=== PATIENT | female | born 1955 | race Caucasian/White ===

== ENCOUNTER 2022-02-09 22:25 | Emergency (ER) | payer SELFPAY ==
[~2022-02-09] VITALS: Ht 152.4 cm; Wt 76.2 kg
[~2022-02-09 22:25] MED LIST: HYDR25TA4 PO; LIP40 PO
--- NOTE | 2022-02-09 22:39 | NUR ---
Pt to ER from home w/ c/o left flank pain x 3 days 10 pain w/ associated diarrhea. Pt denies fever, dysuria, and abdominal pain. Pt ambulats with strong steady gait. Normal skin color for ethncity. Pt denies n/v. PT denies blood in stool.
[2022-02-09 22:42] VITALS: BP_SYST 147
--- NOTE | 2022-02-09 23:00 | NUR ---
Pt given urine cup at this time
--- NOTE | 2022-02-09 23:07 | NUR ---
Patient to ER bed 07 to gown for evaluation. Side rails up. Report given to DOMENICO VERDIN
--- NOTE | 2022-02-09 23:20 | NUR ---
Pt to CT via wheelchair accompanied by staff.
--- NOTE | 2022-02-09 23:35 | NUR ---
Urine sample collected and sent to lab.
[2022-02-09 23:44] LABS: BILIRUBIN,URINE NEGATIVE (NEGATIVE); CLARITY/URINE CLEAR (CLEAR); COLOR,URINE YELLOW (YELLOW); GLUCOSE,URINE NEGATIVE (NEGATIVE); KETONES,URINE NEGATIVE (NEGATIVE); LEUKOCYTE ESTERASE ,URINE NEGATIVE (NEGATIVE); NITRITE, URINE NEGATIVE (NEGATIVE); PH,URINE 5.5 (5.0-8.0); PROTEIN URINE NEGATIVE (NEGATIVE); UROBILINOGEN,URINE 0.2 (0.2-1.0)
[2022-02-09 23:48] LABS: BLOOD, URINE TRACE (NEGATIVE)
[2022-02-09 23:51] LABS: BACTERIA,URINE FEW /HPF (None Seen); RBC,URINE 0-3 /HPF (0-3); WBC,URINE 0-3 /HPF (0-3)
[2022-02-10 00:14] LABS: CALCIUM 8.9 mg/dL (8.4-11.0); CREATININE 0.77 mg/dL (0.55-1.30); POTASSIUM 3.7 mmol/L (3.5-5.1)
[2022-02-10 00:19] LABS: ALBUMIN 3.8 g/dL (3.4-4.8); TOTAL BILIRUBIN 0.6 mg/dL (0.0-1.0)
[2022-02-10 00:20] LABS: RED BLOOD CELL COUNT(AUTO) 4.47 MIL/uL (4.2-6.2)
[2022-02-10 00:25] LABS: BASOPHILS % (AUTO) 0.4 % (0.0-2.0); EOSINOPHILS # (AUTO) 0.2 K/uL (0.0-0.4); EOSINOPHILS % (AUTO) 3.2 % (0.0-4.0); HEMATOCRIT 38.2 % (36-48); HEMOGLOBIN 13.4 g/dL (12.0-16.0); LYMPHOCYTES # (AUTO) 1.9 K/uL (1.0-5.5); LYMPHOCYTES % (AUTO) 30.6 % (20.5-51.5); MEAN CORPUSCULAR HEMOGLOBIN 30 pg (27-31); MEAN CORPUSCULAR HGB CONC 35 % (32-36); MEAN CORPUSCULAR VOLUME 86 fL (79.0-98.0); MONOCYTES # (AUTO) 0.4 K/uL (0.0-1.0); MONOCYTES % (AUTO) 6.9 % (1.7-9.3); NEUTROPHILS # (AUTO) 3.7 K/uL (1.8-7.7); NEUTROPHILS % (AUTO) 58.9 % (40.0-70.0); PLATELET COUNT (AUTO) 215 K/uL (130-430); RED CELL DISTRIBUTION WIDTH 13.3 % (9.0-15.0); WHITE BLOOD COUNT (AUTO) 6.2 K/uL (4.8-10.8)
[2022-02-10] MEDS ORDERED: ACETAMINOPHEN 500 MG TABLET PO ONE (00:30)
[2022-02-10] MEDS ORDERED: HYDR-3917 PO (02:00)
--- NOTE | 2022-02-10 02:07 | NUR ---
Patient given written and verbal discharge instructions and verbalizes understanding. ER MD discussed with patient the results and treatment provided. Patient in stable condition. ID arm band removed. Rx of given. Patient educated on pain management and to follow up with PMD. Pain Scale . Opportunity for questions provided and answered. Medication side effect fact sheet provided.
[2022-02-10 02:10] VITALS: BP_SYST 115
== END 2022-02-10 02:10 | disposition home or self-care (01) ==
LOC: SED 22:25
DX: R10.9 Unspecified abdominal pain (principal); I10 Essential (primary) hypertension; Z79.899 Other long term (current) drug therapy
CPT/HCPCS: 36415; 76376; 80053; 81000; 83690; 85025; 99284

== ENCOUNTER 2023-05-04 10:49 | Emergency (ER) | payer SELFPAY ==
[~2023-05-04] VITALS: Ht 152.4 cm; Wt 76.2 kg
[~2023-05-04 10:49] MED LIST changes: +HYDR-3917 PO
[2023-05-04 11:38] VITALS: BP_SYST 130; PULSE 69; RESP 16; TEMP 98.6; O2SAT 98
[2023-05-04] MEDS ORDERED: MED4 PO (11:49)
[2023-05-04] MEDS ORDERED: DIPH25CA83 PO (11:49)
[2023-05-04 11:54] VITALS: BP_SYST 125; PULSE 77; RESP 18; TEMP 98.2; O2SAT 95
== END 2023-05-04 11:53 | disposition home or self-care (01) ==
LOC: SED 10:49
DX: T63.481A Toxic effect of venom of other arthropod, accidental (unintentional), initial encounter (principal); R21 Rash and other nonspecific skin eruption; I10 Essential (primary) hypertension; Z88.6 Allergy status to analgesic agent; Z88.8 Allergy status to other drugs, medicaments and biological substances; Y92.89 Other specified places as the place of occurrence of the external cause
CPT/HCPCS: 99283

== ENCOUNTER 2023-06-01 23:57 | Emergency (ER) | payer MEDICAID ==
[~2023-06-01] VITALS: Ht 152.4 cm; Wt 77.1 kg
[~2023-06-01 23:57] MED LIST changes: +DIPH25CA83 PO; +MED4 PO
[2023-06-02 00:13] VITALS: BP_SYST 163; PULSE 75; RESP 16; TEMP 97.6; O2SAT 96
[2023-06-02] MEDS ORDERED: NACL 0.9% 1,000 ML IV ONE (00:30)
[2023-06-02] MEDS ORDERED: ONDANSETRON HCL 4 MG/2 ML VIAL IVP ONE (00:30)
[2023-06-02 00:48] LABS: BASOPHILS % (AUTO) 0.2 % (0.0-2.0); EOSINOPHILS # (AUTO) 0.2 K/uL (0.0-0.4); EOSINOPHILS % (AUTO) 1.7 % (0.0-4.0); HEMOGLOBIN 13.4 g/dL (12.0-16.0); LYMPHOCYTES # (AUTO) 1.5 K/uL (1.0-5.5); LYMPHOCYTES % (AUTO) 17.5 % (20.5-51.5); MEAN CORPUSCULAR HEMOGLOBIN 28 pg (27-31); MEAN CORPUSCULAR HGB CONC 33 % (32-36); MEAN CORPUSCULAR VOLUME 86 fL (79.0-98.0); MONOCYTES # (AUTO) 0.5 K/uL (0.0-1.0); MONOCYTES % (AUTO) 5.5 % (1.7-9.3); NEUTROPHILS # (AUTO) 6.6 K/uL (1.8-7.7); NEUTROPHILS % (AUTO) 75.1 % (40.0-70.0); PLATELET COUNT (AUTO) 227 K/uL (130-430); RED BLOOD CELL COUNT(AUTO) 4.75 MIL/uL (4.2-6.2); RED CELL DISTRIBUTION WIDTH 13.2 % (9.0-15.0); WHITE BLOOD COUNT (AUTO) 8.8 K/uL (4.8-10.8)
[2023-06-02 01:17] LABS: ALANINE AMINOTRANSFERASE 44 U/L (12-78); ALBUMIN 3.9 g/dL (3.4-4.8); ANION GAP 10 (5-15); ASPARTATE AMINOTRANSFERASE 27 U/L (10-37); CALCIUM 9.1 mg/dL (8.4-11.0); CARBON DIOXIDE 29 mmol/L (23-29); CHLORIDE 102 mmol/L (98-107); CREATININE 0.76 mg/dL (0.55-1.30); GFR AFRICAN AMERICAN 97 mL/min (>90); GLUCOSE 145 mg/dL (74-106); LIPASE 35 U/L (16-77); SODIUM SERUM 141 mmol/L (136-145); TOTAL BILIRUBIN 0.3 mg/dL (0.0-1.0); TOTAL PROTEIN, SERUM 7.7 g/dL (6.4-8.3); UREA NITROGEN, BLOOD 23 mg/dL (8-21)
[2023-06-02 01:25] LABS: GFR NON AFRICAN-AMERICAN 80 mL/min (>90)
[2023-06-02 01:29] LABS: POTASSIUM 2.9 mmol/L (3.5-5.1)
[2023-06-02] MEDS ORDERED: POTASSIUM CHLORIDE 20 MEQ TAB.PRT.SR PO ONE (01:30)
[2023-06-02] MEDS ORDERED: MECLIZINE HCL 25 MG TABLET (ANITVERT) PO ONE (01:45)
[2023-06-02 02:28] LABS: BILIRUBIN,URINE NEGATIVE (NEGATIVE); BLOOD, URINE NEGATIVE (NEGATIVE); CLARITY/URINE CLEAR (CLEAR); COLOR,URINE YELLOW (YELLOW); GLUCOSE,URINE NEGATIVE (NEGATIVE); KETONES,URINE NEGATIVE (NEGATIVE); LEUKOCYTE ESTERASE ,URINE NEGATIVE (NEGATIVE); NITRITE, URINE NEGATIVE (NEGATIVE); PH,URINE 7.5 (5.0-8.0); PROTEIN URINE NEGATIVE (NEGATIVE); UROBILINOGEN,URINE 0.2 (0.2-1.0)
[2023-06-02] MEDS ORDERED: MECL-225 PO (03:24)
[2023-06-02] MEDS ORDERED: ONDA-8 TL (03:24)
[2023-06-02] MEDS ORDERED: POTA-217 PO (03:29)
[2023-06-02] MEDS ORDERED: PRO40 PO (03:29)
[2023-06-02 04:15] VITALS: BP_SYST 116; PULSE 58; RESP 18; TEMP 97.8; O2SAT 98
== END 2023-06-02 04:15 | disposition home or self-care (01) ==
LOC: SED 23:57
DX: R42 Dizziness and giddiness (principal); R11.10 Vomiting, unspecified; R07.9 Chest pain, unspecified; I10 Essential (primary) hypertension; Z88.6 Allergy status to analgesic agent; Z88.8 Allergy status to other drugs, medicaments and biological substances; Z79.899 Other long term (current) drug therapy
CPT/HCPCS: 99285; 80053; 81001; 83690; 85025; 84484; 36415; 81003; 70450; 96374; 96361; 76376; 74176; J8597; J2405; J7030

== ENCOUNTER 2023-06-28 19:24 | Emergency (ER) | payer MEDICAID ==
[~2023-06-28] VITALS: Ht 154.9 cm; Wt 80.7 kg
[~2023-06-28 19:24] MED LIST changes: +MECL-225 PO; +ONDA-8 TL; +POTA-217 PO; +PRO40 PO
[2023-06-28 20:00] VITALS: BP_SYST 141; PULSE 76; RESP 16; TEMP 98.3; O2SAT 96
== END 2023-06-28 21:17 | disposition left against medical advice (07) ==
LOC: SED 19:24
DX: R21 Rash and other nonspecific skin eruption (principal); Z53.21 Procedure and treatment not carried out due to patient leaving prior to being seen by health care provider
CPT/HCPCS: 99281

== ENCOUNTER 2023-12-31 20:51 | Emergency (ER) | payer MEDICAID, OTHER ==
[~2023-12-31] VITALS: Ht 177.8 cm; Wt 72.6 kg
[2023-12-31 21:05] VITALS: BP_SYST 146; PULSE 96; RESP 22; TEMP 98; O2SAT 97
[2023-12-31] MEDS ORDERED: HYDR-3917 PO (22:52)
[2023-12-31] MEDS: HYDROcodone/ACETAMIN 5-325 MG TAB (NORCO/ VICODIN) PO ONE (22:53)
[2023-12-31 22:59] VITALS: BP_SYST 142; PULSE 92; RESP 20; TEMP 97.8; O2SAT 97
== END 2023-12-31 22:59 | disposition home or self-care (01) ==
LOC: SED 20:51
DX: S32.059A Unspecified fracture of fifth lumbar vertebra, initial encounter for closed fracture (principal); R07.9 Chest pain, unspecified; M54.2 Cervicalgia; I10 Essential (primary) hypertension; E78.5 Hyperlipidemia, unspecified; Z98.890 Other specified postprocedural states; Z88.1 Allergy status to other antibiotic agents; Z88.6 Allergy status to analgesic agent; Z79.899 Other long term (current) drug therapy; Z79.2 Long term (current) use of antibiotics; V89.2XXA Person injured in unspecified motor-vehicle accident, traffic, initial encounter; Y93.89 Activity, other specified; Y92.89 Other specified places as the place of occurrence of the external cause; Y99.8 Other external cause status
CPT/HCPCS: 71045; 72040; 72100; 99284

== ENCOUNTER 2024-04-02 10:07 | Emergency (ER) | payer OTHER ==
[~2024-04-02] VITALS: Ht 157.5 cm; Wt 79.4 kg
[2024-04-02 10:07] VITALS: BP_SYST 168; PULSE 94; RESP 18; TEMP 97.8; O2SAT 99
[2024-04-02] MEDS ORDERED: IBUP-1969 PO (13:15)
[2024-04-02] MEDS ORDERED: SOM350 PO (13:15)
[2024-04-02 14:24] VITALS: BP_SYST 139; PULSE 80; RESP 20; TEMP 97.9; O2SAT 96
== END 2024-04-02 14:20 | disposition home or self-care (01) ==
LOC: SED 10:07
DX: S43.492A Other sprain of left shoulder joint, initial encounter (principal); S16.1XXA Strain of muscle, fascia and tendon at neck level, initial encounter; S20.219A Contusion of unspecified front wall of thorax, initial encounter; M54.50 Low back pain, unspecified; R10.2 Pelvic and perineal pain; I10 Essential (primary) hypertension; E78.5 Hyperlipidemia, unspecified; Z88.6 Allergy status to analgesic agent; Z88.8 Allergy status to other drugs, medicaments and biological substances; Z79.899 Other long term (current) drug therapy; Z79.2 Long term (current) use of antibiotics; V89.2XXA Person injured in unspecified motor-vehicle accident, traffic, initial encounter; Y93.89 Activity, other specified; Y92.89 Other specified places as the place of occurrence of the external cause; Y99.8 Other external cause status
CPT/HCPCS: 71045; 72040; 72100; 72170-TC; 99284